=== PATIENT | female | born 1985 | race Caucasian/White ===

== ENCOUNTER 2023-02-06 16:53 | Emergency (ER) | payer OTHER ==
[2023-02-06] MEDS ORDERED: Sodium Chloride 0.9% 10 ML Syringe FLUSH PRN (17:12)
[2023-02-06 17:41] LABS: BASOPHILS ABSOLUTE AUTO 0.03 K/mm3 (0.01-0.08); BASOPHILS PERCENT AUTO 0.4 % (0.1-1.2); EOSINOPHILS ABSOLUTE AUTO 0.05 K/mm3 (0.04-0.36); EOSINOPHILS PERCENT AUTO 0.6 (0.7-5.8); HEMATOCRIT 35.8 % (34.1-44.9); HEMOGLOBIN 11.9 gm/dl (11.2-15.7); IMMATURE GRAN ABSOLUTE AUTO 0.01 K/mm3 (0.00-0.10); IMMATURE GRAN PERCENT AUTO 0.1 % (<=1.0); LYMPHOCYTES ABSOLUTE AUTO 2.01 K/mm3 (1.18-3.74); LYMPHOCYTES PERCENT AUTO 25.1 % (19.3-51.7); MEAN CORPUSCULAR HEMOGLOBIN 32.1 pg (25.6-32.2); MEAN CORPUSCULAR HGB CONC 33.2 g/dl (32.2-35.5); MEAN CORPUSCULAR VOLUME 96.5 fl (79.4-94.8); MEAN PLATELET VOLUME 9.2 fl (9.4-12.3); MONOCYTES ABSOLUTE AUTO 0.87 K/mm3 (0.24-0.36); MONOCYTES PERCENT AUTO 10.9 % (4.7-12.5); NEUTROPHILS ABSOLUTE AUTO 5.03 K/mm3 (1.56-6.13); NEUTROPHILS PERCENT AUTO 62.9 % (34.0-71.1); PLATELET COUNT,PLT 366 K/mm3 (182-369); RED BLOOD CELL COUNT 3.71 M/mm3 (3.98-5.22)
[2023-02-06 18:01] LABS: ALBUMIN 3.6 g/dl (3.4-5.0); BILIRUBIN TOTAL 0.4 mg/dL (0.2-1.0); BUN/CREATININE RATIO 18.8 (14-18); CREATININE 0.8 mg/dL (0.55-1.02); EST CRCL DRUG DOSING (CG) 88.32 mL/min; MAGNESIUM 2.1 mg/dL (1.8-2.4); PHOSPHORUS 2.3 mg/dL (2.6-4.7); PROTEIN TOTAL,TP 7.4 g/dl (6.4-8.2)
[2023-02-06] MEDS ORDERED: Diphtheria,Pertussis(Acell),Tetanus Vaccine 0.5 ML Syringe IM ONE (18:18)
[2023-02-06] MEDS ORDERED: Ibuprofen 600 MG Tab PO ONE (18:34)
[2023-02-06] MEDS ORDERED: Lidocaine 2% with EPINEPHrine 1:100,000 20 ML MDV INJECT ONE (18:45)
== END 2023-02-06 19:45 | disposition home or self-care (01) ==
LOC: JD.ED 16:53
DX: R56.9 Unspecified convulsions (principal); S01.01XA Laceration without foreign body of scalp, initial encounter; Z23 Encounter for immunization
CPT/HCPCS: 12001; 36415; 70450; 80053; 80307; 82550; 83735; 84100; 84703; 85025; 90471; 90715; 93005; 99285; A9270; J3490; 93010; 99284